=== PATIENT | female | born 1970 | race Caucasian/White ===

== ENCOUNTER 2019-12-05 08:24 | Emergency (ER) | payer OTHER, SELFPAY ==
[2019-12-05 08:30] VITALS: BP 162/93; PULSE 104; RESP 18; TEMP 36.7; O2SAT 100
--- NOTE | 2019-12-05 08:37 | ED.GENADULT ---
HPI - General Adult General Chief complaint: Wound/Laceration Stated complaint: cut to right elbow Time Seen by Provider: 12/05/19 08:37 Source: patient and RN notes reviewed Mode of arrival: ambulatory Limitations: no limitations History of Present Illness HPI narrative: 49-year-old female present with complaints of laceration to right upper arm caused by falling and hitting arm onto concrete 12 hours ago. Summer says she was tripped by her dog while letting it out in the dark and missed a step. Denies focal weakness, altered sensation, rash, fever or chills, or nausea or vomiting and abdominal pain. Denies pain, numbness or tingling, or loss of mobility. No foreign body sensation. LEFT HAND dominant hand. Tetanus NOT up-to-date, last 2010. Denies hitting head or loss of consciousness. Some parts of this dictation were generated by voice recognition software and may contain typographical and/or grammatical inaccuracies Related Data Allergies Allergy/AdvReac Type Severity Reaction Status Date / Time No Known Allergies Allergy Verified 12/05/19 08:40 Review of Systems Review of Systems: Narrative: CONSTITUTIONAL: Denies fever, chills, sweats. EYES: Denies visual changes, redness, discharge. ENT: Denies rhinorrhea, congestion, sore throat, otalgia. CARDIOVASCULAR: Denies chest pain, palpitations, edema. RESPIRATORY: Denies dyspnea, wheezing, cough. GASTROINTESTINAL: Denies abdominal pain, nausea, vomiting, or diarrhea. GENITOURINARY: Denies dysuria, hematuria, abnormal discharge. SKIN: Denies rash or itching. Complains of laceration to right upper arm. MUSCULOSKELETAL: Denies acute back pain, joint pain, or myalgia. NEUROLOGIC: Denies numbness or focal weakness. PSYCHIATRIC: Denies anxiety or depression. All other systems reviewed & are unremarkable except as noted in HPI and below. [facility] Past Medical History Medical History (Updated 12/05/19 @ 09:18 by SANJANA Arteaga) Colon cancer screening Cologuard negative 10/26/2019 FHx: diabetes mellitus H/O cyst of breast Zully-menopausal Tobacco abuse Urine retention self catheters Surgical History Surgical History (Updated 12/05/19 @ 09:18 by SANJANA Arteaga) History of bladder surgery Insertion-08/2009 and removal of sacral neuromodulation Family History Family History Other Diabetes mellitus Social History Social History (Updated 12/05/19 @ 09:19 by SANJANA Arteaga) Smoking packs per day: 0.5 Smoking cigarettes per day: 10.0 Years smoked: 30 Smoking pack-years: 15.00 Smoking status: Current every day smoker Tobacco type: cigarettes Second hand tobacco smoke exposure: No Alcohol intake: current Substance use: never Living arrangements: with family Occupation/Education: occupation Gender identity (if verbalized by the patient): Female Sexual Orientation (if Verbalized by the Patient): Straight or Heterosexual Comments At time of signature, agree with nurse past medical, surgical, social, and family history. There is no relevant family history pertinent to the presenting complaint. Exam Narrative: Exam Narrative: GENERAL: This is a well-nourished, well-developed patient, in no apparent distress. HEAD: normocephalic, atraumatic. CARDIOVASCULAR: Regular rate and rhythm without murmurs, gallops, or rubs. RESPIRATORY: Clear to auscultation. Breath sounds equal bilaterally. No wheezes, rales, or rhonchi. GASTROINTESTINAL: Abdomen soft, non-tender, nondistended. Bowel sounds are active. No hepato-splenomegaly, or palpable masses. No guarding. SKIN: warm, RT medial elbow with 4cm complex gapping subcutaneous irregular laceration no evidence of foreign body, tendon injury or neurovascular injury, scant bloody drainage noted after manipulation. Mild-moderate swelling, erythema, and ecchymosis. No suspicious lesions or rash, good texture and turgo
[2019-12-05] MEDS: TETANUS,DIPHTHERIA,AC PERTUSSIS ADULT (0.5 ML) BOOSTRIX IM (08:57)
== END 2019-12-05 09:20 | disposition short-term general hospital (02) ==
PROVIDERS: Emergency Provider Nurse Practitioner Family; PCP Family Medicine
DX: S51.011A Laceration without foreign body of right elbow, initial encounter (principal); W10.9XXA Fall (on) (from) unspecified stairs and steps, initial encounter; Z23 Encounter for immunization; F17.210 Nicotine dependence, cigarettes, uncomplicated; F41.9 Anxiety disorder, unspecified; F32.9 Major depressive disorder, single episode, unspecified
CPT/HCPCS: 90471; 90715; 99212; G0463

== ENCOUNTER 2019-12-05 09:39 | Emergency (ER) | payer OTHER, SELFPAY ==
--- NOTE | ~2019-12-05 | XR_ITS ---
XR elbow RT min 3V DATE: 12/05/2019 10:14 INDICATION: Injury from fall. Laceration. Pain. TECHNIQUE: 4 views of right elbow COMPARISON: None FINDINGS: No fracture or dislocation or joint effusion. No periosteal reaction or bone destruction. J oint spaces are preserved. IMPRESSION: Negative Reviewed, dictated and finalized at location B. IMPRESSION: Negative
[2019-12-05 09:48] VITALS: BP 167/90; PULSE 95; RESP 17; TEMP 36.1; O2SAT 100
--- NOTE | 2019-12-05 10:33 | ED.WOUNDLAC ---
HPI - Wound/Laceration General Chief Complaint: Wound/Laceration <Tamela Ward PA-C - Last Filed: 12/05/19 12:01> Stated Complaint: gash on arm <TIFFANY Herrera Last Filed: 12/05/19 12:01> Time Seen by Provider: 12/05/19 09:55 <Tamela Ward PA-C - Last Filed: 12/05/19 12:01> Source: patient <TIFFANY Herrera Last Filed: 12/05/19 12:01> Mode of arrival: ambulatory <TIFFANY Herrera Last Filed: 12/05/19 12:01> Limitations: no limitations <TIFFANY Herrera Last Filed: 12/05/19 12:01> History of Present Illness HPI narrative: This is a 49 year old female that presents to the ER for laceration to right forearm sustained last night. Reports she had gotten up to take her dog out. Reports she was walking down the steps and missed a step because she couldn't see. Reports she fell onto her right elbow. Reports a laceration to the area and bruising. She was seen at urgent care and sent here for further evaluation. She was updated on tetanus. Denies hitting her head, loss of consciousness, other injuries, decreased ROM or numbness. <Tamela Ward PA-C - Last Filed: 12/05/19 12:01> Related Data Allergies/Adverse Reactions: Allergies Allergy/AdvReac Type Severity Reaction Status Date / Time No Known Allergies Allergy Verified 12/05/19 08:40 <TIFFANY Herrera Last Filed: 12/05/19 12:01> Review of Systems Review of Systems: Narrative: CONSTITUTIONAL: Denies fever SKIN: Reports laceration MUSCULOSKELETAL: Reports joint pain, and myalgia. NEUROLOGIC: Denies numbness <TIFFANY Herrera Last Filed: 12/05/19 12:01> All systems reviewed & are unremarkable except as noted in HPI and below <TIFFANY Herrera Last Filed: 12/05/19 12:01> [facility] Past Medical History Medical History: Medical History (Updated 12/05/19 @ 11:58 by Tamela Ward PA-C) Colon cancer screening Cologuard negative 10/26/2019 FHx: diabetes mellitus H/O cyst of breast Zully-menopausal Tobacco abuse Urine retention self catheters <Tamela Ward PA-C - Last Filed: 12/05/19 12:01> Surgical History Surgical History: Surgical History (Updated 12/05/19 @ 09:18 by SANJANA Arteaga) History of bladder surgery Insertion-08/2009 and removal of sacral neuromodulation <Tamela Ward PA-C - Last Filed: 12/05/19 12:01> Social History Social History: Social History (Updated 12/05/19 @ 09:19 by SANJANA Arteaga) Smoking packs per day: 0.5 Smoking cigarettes per day: 10.0 Years smoked: 30 Smoking pack-years: 15.00 Smoking status: Current every day smoker Tobacco type: cigarettes Second hand tobacco smoke exposure: No Alcohol intake: current Substance use: never Gender identity (if verbalized by the patient): Female <Tamela Ward PA-C - Last Filed: 12/05/19 12:01> Exam Narrative: Exam Narrative: GENERAL: Well-appearing, well-nourished, and in no acute distress. HEAD: Normocephalic, atraumatic. EYES: EOMI. EXTREMITIES: Normal range of motion. No edema or obvious deformity. Right elbow with mild bruising. 6cm flap laceration into subcutaneous tissue to the right forearm. Normal radial pulses. Normal sensation SKIN: Warm, dry, no rash. NEURO: No focal deficits. Alert and oriented x3. PSYCH: Normal mood and affect <Tamela Ward PA-C - Last Filed: 12/05/19 12:01> Course Vital Signs Vital signs: Vital Signs Temperature 36.1 C L 12/05/19 09:48 Pulse Rate 95 12/05/19 09:48 Respiratory Rate 17 12/05/19 09:48 Blood Pressure 167/90 H 12/05/19 09:48 Pulse Oximetry 100 12/05/19 09:48 Temperature 36.1 C L 12/05/19 09:48 Pulse Rate 95 12/05/19 09:48 Respiratory Rate 17 09/28/20 09:48 Blood Pressure 167/90 H 12/05/19 09:48 Pulse Oximetry 100 12/05/19 09:48 <Tamela Ward PA-C - Last Filed: 12/05/19 12:01> Vital Signs Temperature 36.1 C L 11/08
== END 2019-12-05 12:25 | disposition home or self-care (01) ==
PROVIDERS: Emergency Provider Emergency Medicine; PCP Family Medicine
DX: S51.011A Laceration without foreign body of right elbow, initial encounter (principal); F17.210 Nicotine dependence, cigarettes, uncomplicated; W10.9XXA Fall (on) (from) unspecified stairs and steps, initial encounter
CPT/HCPCS: 12002; 73080; 99283

== ENCOUNTER 2021-05-06 09:29 | Emergency (ER) | payer OTHER, SELFPAY ==
[2021-05-06 09:34] VITALS: BP 136/101; PULSE 108; RESP 16; TEMP 37; O2SAT 99
--- NOTE | 2021-05-06 09:35 | ED.EAR ---
HPI - Ear Problem General Chief complaint: Ear Stated complaint: Ear Pain Time Seen by Provider: 05/06/21 09:36 Source: patient and RN notes reviewed History of Present Illness HPI Narrative: Patient is a 50-year-old female who presents the urgent care with complaints of bilateral ear pain, cough and sinus congestion. Patient states that she is taking cold medications [id number] without much relief. Patient denies any fever, nausea, vomiting. No other acute complaints. No acute distress noted. Patient aware of the plan of care. Some parts of this dictation were generated by voice recognition software and may contain typographical and/or grammatical inaccuracies. Related Data Allergies Allergy/AdvReac Type Severity Reaction Status Date / Time No Known Allergies Allergy Verified 05/06/21 09:42 Review of Systems Review of Systems: CONSTITUTIONAL: Denies fever, chills, or sweats. EYES: Denies visual changes, redness, or discharge. ENT: Reports of congestion, rhinorrhea, postnasal drainage and bilateral otalgia CARDIOVASCULAR: Denies chest pain, palpitations, or edema. RESPIRATORY: Reports a mild cough without dyspnea GASTROINTESTINAL: Denies abdominal pain, nausea, vomiting, or diarrhea. GENITOURINARY: Denies dysuria or hematuria. SKIN: Denies rash or itching. MUSCULOSKELETAL: Denies back pain, joint pain, or myalgia. NEUROLOGIC: Denies headache, numbness, or weakness. All other systems reviewed are negative, except as documented in HPI. [facility] Past Medical History Medical History Colon cancer screening Cologuard negative 10/26/2019 FHx: diabetes mellitus H/O cyst of breast Zully-menopausal Tobacco abuse Urine retention self catheters Surgical History Surgical History History of bladder surgery Insertion-08/2009 and removal of sacral neuromodulation Family History Family History Other Diabetes mellitus Social History Social History (Updated 11/13/20 @ 08:38 by Marilyn Payne CMA) Smoking packs per day: 0.5 Smoking cigarettes per day: 10.0 Years smoked: 30 Smoking pack-years: 15.00 Tobacco type: cigarettes Second hand tobacco smoke exposure: No Alcohol intake: current Drinks per week: 2 Substance use: never Substance use type: does not use Gender identity (if verbalized by the patient): Female Sexual Orientation (if Verbalized by the Patient): Straight or Heterosexual Comments At the time of my signature, I reviewed and agree with the nursing past medical, surgical, social, and family history. There is no relevant family history pertinent to the patient complaint. Exam Narrative: GENERAL: This is a well-nourished, well-developed patient, in no apparent distress. HEAD: normocephalic, atraumatic. EYES: PERRL. Sclera clear/white. Vision is grossly intact. EARS: External ears normal, auditory canals clear and without drainage, mild to moderate fluid noted behind bilateral TMs without otitis. TMs normal without perforation. Hearing grossly intact. NOSE: External nose normal with no obvious nasal discharge, nares without redness, clear rhinorrhea. THROAT: Mucous membranes moist. Mild erythema noted posterior pharynx with moderate postnasal drainage NECK: Neck supple CARDIOVASCULAR: Regular rate and rhythm without murmurs, gallops, or rubs. RESPIRATORY: Clear to auscultation. Breath sounds equal bilaterally. No wheezes, rales, or rhonchi. SKIN: warm, intact with no suspicious lesions or rash, good texture and turgor. NEURO: awake, alert, and oriented to person, place and time. There were no obvious focal neurologic abnormalities. EXTREMITIES: No clubbing, cyanosis, or edema. Course Course Level of Care: Express Care Visit Vital Signs Vital signs: Vital Signs Temperature 98.6 F 05/06/21 09:34 Pu
== END 2021-05-06 09:56 | disposition home or self-care (01) ==
PROVIDERS: Emergency Provider Nurse Practitioner Family; PCP Family Medicine
DX: J32.9 Chronic sinusitis, unspecified (principal); F17.210 Nicotine dependence, cigarettes, uncomplicated
CPT/HCPCS: 99213; G0463

== ENCOUNTER 2022-02-11 09:53 | Emergency (ER) | payer OTHER, SELFPAY ==
[2022-02-11 09:58] VITALS: BP 130/84; PULSE 109; RESP 16; TEMP 36.6; O2SAT 97
--- NOTE | 2022-02-11 11:18 | ED.URI ---
HPI - URI/Sore Throat General Chief Complaint: Upper Respiratory Infection Stated Complaint: Headache/Cough Time Seen by Provider: 02/11/22 11:18 Source: patient and RN notes reviewed Mode of arrival: ambulatory Limitations: no limitations History of Present Illness HPI Narrative: 51-year-old female presenting for complaint of 3 days of cough, sinus congestion, headache, body aches. She is taking DayQuil without relief. She denies shortness of breath, wheezing, nausea, vomiting, diarrhea, fevers or chills. 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 MD elicited complaint: cough Related Data Home Medications Medication Instructions Recorded Confirmed [id number] 18 mg-FA 400 tablet PO 11/14/21 11/14/21 mcg-calcium 500 mg-vit K 50 mcg tablet (Women's Multivitamin) Allergies Allergy/AdvReac Type Severity Reaction Status Date / Time No Known Allergies Allergy Verified 11/14/21 08:49 Review of Systems Review of Systems: ROS per HPI PMFSH Past Medical History Medical History Colon cancer screening Cologuard negative 10/26/2019 FHx: diabetes mellitus H/O cyst of breast History of COVID-19 Zully-menopausal Tobacco abuse Urine retention self catheters Surgical History Surgical History History of bladder surgery Insertion-08/2009 and removal of sacral neuromodulation Family History Family History Other Diabetes mellitus Social History Social History Smoking packs per day: 0.5 Smoking cigarettes per day: 10.0 Years smoked: 30 Smoking pack-years: 15.00 Smoking status: Current every day smoker Tobacco type: cigarettes Second hand tobacco smoke exposure: No Alcohol intake: current Drinks per week: 2 Substance use: never Substance use type: does not use Gender identity (if verbalized by the patient): Female Sexual Orientation (if Verbalized by the Patient): Straight or Heterosexual Exam Narrative: GENERAL: Ill-appearing, nontoxic EYES: PERRLA, conjunctivae clear ENT: Mucous membranes moist. TM pearly nelson with dull light reflex bilaterally; no tragal tenderness. Oropharynx erythematous without lesions or exudate, no drooling, no hoarseness, no trismus, uvula midline. No tripod positioning, muffled voice, soft palate or pharyngeal wall bulging NECK: Supple. No lymphadenopathy CHEST: Clear to auscultation, breath sounds equal. HEART: Regular rate and rhythm. No murmur heard. SKIN: Warm, dry, no rash. NEURO: Alert and oriented x3. PSYCH: Normal mood and affect Course Course Emergency Course: Patient is aware of diagnosis, understands and agrees to treatment plan. Anticipatory guidance given. Patient agrees to follow-up as directed and is aware of reasons to seek care at the emergency department. Portions of this record may have been created with voice recognition software Level of Care: Express Care Visit Vital Signs Vital signs: Vital Signs Temperature 97.9 F 02/11/22 09:58 Pulse Rate 109 H 02/11/22 09:58 Respiratory Rate 16 02/11/22 09:58 Blood Pressure 130/84 02/11/22 09:58 Pulse Oximetry 97 02/11/22 09:58 Oxygen Delivery Room Air 02/11/22 09:58 Temperature 97.9 F 02/11/22 09:58 Pulse Rate 109 H 02/11/22 09:58 Respiratory Rate 16 02/11/22 09:58 Blood Pressure 130/84 02/11/22 09:58 Pulse Oximetry 97 02/11/22 09:58 Oxygen Delivery Room Air 02/11/22 09:58 reviewed MDM - URI/Sore Throat MDM Narrative Medical decision making narrative: Declines flu testing, requesting work note. Advised supportive measures and signs/symptoms to go to the ER. Pt is appropriate for outpt treatment and f/u. Differential Diagnosis Differential diagnosis: Likely upper respirator
== END 2022-02-11 11:30 | disposition home or self-care (01) ==
PROVIDERS: Emergency Provider Nurse Practitioner Family; PCP Family Medicine
DX: B34.9 Viral infection, unspecified (principal); F17.210 Nicotine dependence, cigarettes, uncomplicated; Z86.16 Personal history of COVID-19
CPT/HCPCS: 99211; G0463

== ENCOUNTER 2022-10-07 07:28 | Outpatient (CLI) | payer OTHER, SELFPAY ==
--- NOTE | ~2022-10-07 | MM_ITS ---
EXAMINATION: MM screening skylar BI w brant HISTORY: Screening mammogram TECHNIQUE: Craniocaudal and mediolateral oblique 3-D tomosynthesis images were obtained and synthetic 2-D images were generated. Bilateral rotated lateral CC views. CAD analysis was submitted and interp reted. COMPARISON: 10/15/1999 [facility] bilateral screening mammogram BREAST PARENCHYMAL COMPOSITION: The breasts are extremely dense, which lowers the sensitivity of mamm ography. FINDINGS: There is no evidence of suspicious mass, calcification, or architectural distortion to sugg est malignancy in either breast. There has been no suspicious interval change. IMPRESSION: 1. No mammographic evidence of malignancy. 2. Recommend routine screening mammography in one year. BI-RADS Category 1: Negative Reviewed, dictated and finalized at location A.
== END 2022-10-07 07:29 | disposition home or self-care (01) ==
PROVIDERS: PCP Family Medicine; Visit Provider Physician Assistant Medical
DX: Z12.31 Encounter for screening mammogram for malignant neoplasm of breast (principal)
CPT/HCPCS: 77063; 77067

== ENCOUNTER 2023-10-09 08:12 | Outpatient (CLI) | payer OTHER, SELFPAY ==
--- NOTE | ~2023-10-09 | MM_ITS ---
EXAMINATION: MM screening skylar BI w brant HISTORY: Screening TECHNIQUE: Craniocaudal and mediolateral oblique 3-D tomosynthesis images were obtained and synthetic 2-D images were generated. CAD analysis was submitted and interpreted. COMPARISON: Comparison to multiple prior studies sequentially, with oldest reviewed study dated 10/2017. BREAST PARENCHYMAL COMPOSITION: Dense: The breasts are heterogeneously dense, which may obscure small masses FINDINGS: There is a new mass superiorly in the right breast on MLO view. The left breast is stable w ithout evidence for malignancy. IMPRESSION: 1. New right breast mass superiorly in the right breast on MLO view. 2. Additional mammographic views and possible breast ultrasound are recommended. BI-RADS Category 0: Incomplete: Needs additional imaging evaluation. Reviewed, dictated and finalized at location B. IMPRESSION: 1. New right breast mass superiorly in the right breast on MLO view. 2. Additional mammographic views and possible breast ultrasound are recommended . BI-RADS Category 0: Incomplete: Needs additional imaging evaluation.
== END 2023-10-09 08:13 | disposition home or self-care (01) ==
LOC: ANHIMG 08:13
PROVIDERS: PCP Family Medicine; Visit Provider Family Medicine
DX: Z12.31 Encounter for screening mammogram for malignant neoplasm of breast (principal); N63.10 Unspecified lump in the right breast, unspecified quadrant
CPT/HCPCS: 77063; 77067

== ENCOUNTER 2023-10-26 13:32 | Outpatient (CLI) | payer OTHER, SELFPAY ==
--- NOTE | ~2023-10-26 | MMUS_ITS ---
EXAMINATION: MM diagnostic skylar RT w brant, US breast RT limited HISTORY: Follow-up right breast mass TECHNIQUE: Additional 3-D tomosynthesis images of the right breast were performed and synthetic 2-D i mages were generated. CAD analysis was submitted and interpreted. High resolution Limited right breas t ultrasound was performed. COMPARISON: Comparison to multiple prior studies sequentially, with oldest reviewed study dated 08/01. BREAST PARENCHYMAL COMPOSITION: Dense: The breasts are extremely dense, which lowers the sensitivity of mammography. FINDINGS: MAMMOGRAPHIC FINDINGS: There is a small obscured mass in the superior aspect of the right breast on MLO view. There are no s uspicious calcifications or architectural distortion. ULTRASOUND: Limited right breast ultrasound: At 10:00, 1 cm from the nipple there is a 7 mm cyst. At 11:00, 3 cm from the nipple there is a small subcentimeter cyst. At 11:00, 2 cm from the nipple there is an 8 mm cyst. No suspicious masses to suggest malignancy. IMPRESSION: 1. Probable benign mass of the right breast by mammography. There are benign cyst by ultrasound which do not definitely correspond to the area of mammographic concern. 2. Recommend 6 month follow-up diagnostic right mammogram. BI-RADS category 3, probably benign findings. Reviewed, dictated and finalized at location B. IMPRESSION: 1. Probable benign mass of the right breast by mammography. There are benign cy st by ultrasound which do not definitely correspond to the area of mammographic concern. 2. Recommend 6 month follow-up diagnostic right mammogram. BI-RADS category 3, probably benign findings.
== END 2023-10-26 13:33 | disposition home or self-care (01) ==
PROVIDERS: PCP Family Medicine; Visit Provider Family Medicine
DX: R92.8 Other abnormal and inconclusive findings on diagnostic imaging of breast (principal)
CPT/HCPCS: 76642; 77061; 77065; G0279